=== PATIENT | male | born 1955 | race Caucasian/White ===

== ENCOUNTER 2017-02-26 15:28 | Emergency (ER) | payer OTHER ==
[~2017-02-26] VITALS: Ht 175.3 cm; Wt 103.6 kg
[~2017-02-26 15:28] MED LIST: ALBU8.5H2 IH; AMLO5TAB2 PO; ASPI-973 PO; CLON0.1T PO; DOXA8TAB73 PO; FURO40TA4 PO; GLUC-123 PO; HYDR-3090 PO; IBUP-1827 PO; INSU100I13 SUBQ; INSU100I18 SUBQ; INSU200I SQ; LEVO125T6 PO; LIP40 PO; LOSA100T29 PO; TRAM50TA2 PO; UBID50TA3 PO
[2017-02-26 15:35] VITALS: BP 122/73; PULSE 54; RESP 18; O2SAT 98
--- NOTE | 2017-02-26 16:36 | DRSVH ---
PROCEDURE: X-RAY CHEST ONE VIEW, PORTABLE ([id number]) INDICATIONS: SHORTNESS OF BREATH TECHNIQUE: One view of the chest was acquired. COMPARISON: [facility], , CHEST 2VW, 07/06/2014, 17:07. FINDINGS: Surgical changes and devices: Cervical plate and screw fixation Lungs and pleura: No pleural effusions or pneumothorax. Lungs are clear. Mediastinum: Mediastinal contours appear normal. Heart size is normal. Bones and chest wall: No suspicious bony lesions. Overlying soft tissues appear unremarkable. IMPRESSION: No acute disease Dictated by: Jaziel Mayers M.D. on 02/26/2017 at 15:33 Approved by: Jaziel Mayers M.D. on 02/26/2017 at 15:34
--- NOTE | 2017-02-26 18:13 | ED.REPORT ---
HPI-Dizziness / Weakness Date of Service Feb 26, 2017 ED Provider: Doc,Ed MD History of Present Illness: OCC Nursing Notes Stated Complaint: DIZZY, NAUSEA, BRADYCARDIA Chief Complaint: Dysrhythmia/Cardiac Nursing Notes Reviewed: Yes ([employer] not reconciled) Allergies: Coded Allergies: Sulfa (Sulfonamide Antibiotics) (Verified Allergy, Unknown, UNKNOWN, ) TAPE (Verified Allergy, Unknown, RASH/BLISTERS, 02/26/17) ceftriaxone (Verified Allergy, Unknown, UNKNOWN, 02/26/17) Penicillins (Verified Adverse Reaction, Intermediate, Diarrhea, 02/26/17) Scheduled Amlodipine (Amlodipine) 5 Mg Tablet 5 MG PO BID Aspirin (Aspirin) 81 Mg Tablet 81 MG PO DAILY Atorvastatin (Lipitor) 40 Mg Tablet 60 MG PO DAILY Cholecalciferol (Vitamin D3) (Vitamin D3) 1,000 Unit Tab.chew 2,000 UNIT PO DAILY Clonidine (Clonidine) 0.2 Mg Tablet 0.2 MG PO BID Doxazosin Mesylate (Doxazosin Mesylate) 8 Mg Tablet 8 MG PO BID Furosemide (Furosemide) 40 Mg Tablet 40 MG PO BID AM AND 1200 Gluc/Tc-MSM#2/C/D3/Denzel/Born (Lqohtnjwit-Cxtkmndacgs-WJW Tab) 1 Each Tablet 1 EACH PO DAILY Insulin Aspart (NovoLOG U-100 Pen) 100 Unit/Ml Insuln.pen 10 UNITS [id number] MORNING Insulin Aspart (NovoLOG U-100 Pen) 100 Unit/Ml Insuln.pen 15 UNIT [id number] LUNCH Insulin Aspart (NovoLOG U-100 Pen) 100 Unit/Ml Insuln.pen 18 UNIT [id number] DINNER Insulin Glargine (Lantus U100 Solostar Insulin Pen) 100 Unit/1 Ml Insuln.pen 25 UNIT SUBQ HS Levothyroxine (Synthroid) 112 Mcg Tablet 112 MCG PO DAILY Losartan Potassium (Losartan Potassium) 100 Mg Tablet 100 MG PO HS Metformin (Metformin) 500 Mg Tablet 500 MG PO BID Metoprolol Tartrate (Metoprolol Tartrate) 25 Mg Tablet 25 MG PO BID Potassium Chloride ER (Potassium Chloride ER) 20 Meq Tablet.er 20 MEQ PO DAILY TAKE WITH FOOD Ubidecarenone (Co Q-10) 100 Mg Capsule 100 MG PO DAILY Scheduled PRN Albuterol HFA (Proair HFA) 8.5 Gm Hfa.aer.ad 2 PUFFS IH Q4-6H PRN PRN shortness of breath Hydrocodone-Acetaminophen 5-300 mg (Hydrocodone-Acetaminophen 5-300 mg) 1 Each Tablet 1 TABLET PO Q4H PRN PRN For Pain Tramadol (Tramadol) 50 Mg Tablet 50 MG PO QID PRN PRN For Pain Miscellaneous Medications Glucagon,Human Recombinant (Glucagon Emergency Kit) 1 Mg Kit 1 MG IJ General Time Seen by MD: 18:09 Past Medical History Past Medical History Chronic lower back pain Thyroid cancer- in remission Asthma Migraines CHF Diabetes mellitus on Insulin Hyperlipidemia Hypertension Hypothyroid Reports: Hypertension Past Surgical History Right shoulder, right knee Fusion of neck and lower back Reports: Cholecystectomy Reports: Back/neck surgery Smoking History Never Smoker Social History Alcohol Use: Denies alcohol use Drug Use: Denies drug use Physical Exam Initial Vital Signs Vital Signs (First) Date Time Temp Pulse Resp B/P Pulse Ox O2 Delivery O2 Flow Rate FiO2 02/26/17 15:35 36.6 54 18 122/73 98 Room Air Initial VS: Reviewed, Vital signs normal (mild bradycardia) Interpretation & Diagnostics Lab Results Interpretation Result Diagram: 02/26/17191302/26/171913 Test 02/26/17 19:14 02/26/17 22:30 02/26/17 22:51 White Blood Count 6.4th/mm3 (3.8-10.1) Red Blood Count 4.31mil/mm3 (4.40-5.80) Hemoglobin 11.9g/dL (13.8-17.2) Hematocrit 37.2% (41.0-50.0) Mean Corpuscular Volume 86.3fL (81-100) Mean Corpuscular Hemoglobin 27.6pg (27.0-35.0) Mean Corpuscular Hemoglobin Concent 32.0% (32.0-37.0) Red Cell Distribution Width 12.9% (12.3-15.4) Platelet Count 256bil/L (150-400) Neutrophils (%) (Auto) 59.9% (40-74) Lymphocytes (%) (Auto) 29.4% (14-46) Monocytes (%) (Auto) 8.3% (4-12) Eosinophils (%) (Auto) 1.6% (0-5) Basophils (%) (Auto) 0.6% (0-3) D-Dimer < 0.50mg/L FEU (<0.50) Sodium Level 138mEq/L (134-144) Potassium Level 3.7mEq/L (3.5-5.2) Chloride Level 96mEq/L (97-108) Carbon Dioxide Level 26mmol/L (18-29) Blood Urea Nitrogen 20mg/dL (6-24) Creatinine 1.14mg/dL (0.76-1.27) Estimat Glomerular Filtration Rate 70mL/min (>59) Glucose Level 118mg/dL (60-99) Calcium Level 8.4mg/dL (8.5-10.1) Magnesium Level 2.2mg/dL (1.6-2.6) Total Bilirubin 0.6mg/dL (0.0-1.2) Aspartate Amino Transf (AST/SGOT) 41U/L (0-50) Alanine Aminotransferase (ALT/SGPT) 60U/L (0-44) Alkaline Phosphatase 101U/L (25-160) Troponin T < 0.010ug/L (0.0-0.011) Pro-B-Type Natriuretic Peptide 44.53pg/mL (0-210) Total Protein 7.0g/dL (6.4-8.4) Albumin 4.1g/dL (3.4-5.0) Hold Daniels Top Tube Received (Received) Hold Urine Received (Received) Urine Color Yellow (YELLOW) Urine Appearance Clear (CLEAR,HAZY) Urine pH 6.0 (5.0-8.0) Urine Specific [place] 1.005 (1.003-1.035) Urine Protein Negativemg/dL (NEG,TRACE) Urine Glucose (UA) 250mg/dL (NEGATIVE) Urine Ketones 15mg/dL (NEGATIVE) Urine Occult Blood Negative (NEGATIVE) Urine Nitrite Negative (NEGATIVE) Urine Bilirubin Negative (NEGATIVE) Urine Urobilinogen Normalmg/dL (NORMAL) Urine Leukocyte Esterase Negative (NEGATIVE) Urine RBC 0-2/hpf (0-2) Urine WBC 0-5/hpf (0-5) Urine Epithelial Cells Occasional/hpf (NONE-MOD) Urine Crystals None seen (NONE SEEN) Urine Bacteria None/hpf (NONE-FEW) Urine Hyaline Casts None/lpf (NONE) Urine Granular Casts None seen (NONE SEEN) Urine Waxy Casts None seen (NONE SEEN) Urine Red Blood Cell Casts None seen (NONE SEEN) Urine White Blood Cell Casts None seen (NONE SEEN) Urine Mucus None seen (None Seen) Urine Trichomonas None seen (NONE SEEN) Urine Yeast None (NONE SEEN) Urinalysis Comment None Urine Culture Reflexed Not indicated Re-Eval/Medical Decision Source of Hx: Old records Patient Discharge & Departure Referrals: Paulette Samuels MD (PCP) Willian Naqvi MD Feb 26, 2017 18:13 Willian Naqvi MD Feb 26, 2017 18:13
--- NOTE | 2017-02-26 18:15 | ED.REPORT ---
HPI-Dizziness / Weakness Date of Service Feb 26, 2017 ED Provider: Gab Doyle DO A 61 year old male with a history of IDDM, hypertension, CHF, asthma, migraines , hyperlipidemia and hypothyroidism is referred to the ED from Urgent Care complaining of dizziness. The pt has felt lightheaded and dizziness intermittently since yesterday afternoon. This was initially accompanied by headache and nausea, though the symptoms resolved when the pt went to bed yesterday. However the dizziness and lightheadedness returned this morning after eating breakfast and have persisted throughout the day. The dizziness is described as a "clockwise spinning" feeling that is worsened with standing and relieved by sitting down. The dizziness is not worsened by rolling over. The pt also noticed that his heart rate was low when the dizziness became most severe. He experienced similar symptoms two to three months ago with a syncopal episode and he had an extensive negative workup at [facility]. He was diagnosed with possible anemia at that time. The pt denies abnormal back pain. He takes Clonidine daily. Nursing Notes Stated Complaint: DIZZY, NAUSEA, BRADYCARDIA Chief Complaint: Dysrhythmia/Cardiac Nursing Notes Reviewed: Yes Allergies: Coded Allergies: Sulfa (Sulfonamide Antibiotics) (Verified Allergy, Unknown, UNKNOWN, ) TAPE (Verified Allergy, Unknown, RASH/BLISTERS, 02/27/17) ceftriaxone (Verified Allergy, Unknown, UNKNOWN, 02/27/17) Penicillins (Verified Adverse Reaction, Intermediate, Diarrhea, 02/27/17) Scheduled Amlodipine (Amlodipine) 5 Mg Tablet 5 MG PO BID Aspirin (Aspirin) 81 Mg Tablet 81 MG PO DAILY Atorvastatin (Lipitor) 40 Mg Tablet 60 MG PO DAILY Cholecalciferol (Vitamin D3) (Vitamin D3) 1,000 Unit Tab.chew 2,000 UNIT PO DAILY Clonidine (Clonidine) 0.2 Mg Tablet 0.2 MG PO BID Doxazosin Mesylate (Doxazosin Mesylate) 8 Mg Tablet 8 MG PO BID Furosemide (Furosemide) 40 Mg Tablet 40 MG PO BID AM AND 1200 Gluc/Tc-MSM#2/C/D3/Denzel/Born (Ovbvdgsqkg-Waqjsvxlryr-TRZ Tab) 1 Each Tablet 1 EACH PO DAILY Insulin Aspart (NovoLOG U-100 Pen) 100 Unit/Ml Insuln.pen 10 UNITS [id number] MORNING Insulin Aspart (NovoLOG U-100 Pen) 100 Unit/Ml Insuln.pen 15 UNIT [id number] LUNCH Insulin Aspart (NovoLOG U-100 Pen) 100 Unit/Ml Insuln.pen 18 UNIT [id number] DINNER Insulin Glargine (Lantus U100 Solostar Insulin Pen) 100 Unit/1 Ml Insuln.pen 25 UNIT SUBQ HS Levothyroxine (Synthroid) 112 Mcg Tablet 112 MCG PO DAILY Losartan Potassium (Losartan Potassium) 100 Mg Tablet 100 MG PO HS Metformin (Metformin) 500 Mg Tablet 500 MG PO BID Metoprolol Tartrate (Metoprolol Tartrate) 25 Mg Tablet 25 MG PO BID Potassium Chloride ER (Potassium Chloride ER) 20 Meq Tablet.er 20 MEQ PO DAILY TAKE WITH FOOD Ubidecarenone (Co Q-10) 100 Mg Capsule 100 MG PO DAILY Scheduled PRN Albuterol HFA (Proair HFA) 8.5 Gm Hfa.aer.ad 2 PUFFS IH Q4-6H PRN PRN shortness of breath Hydrocodone-Acetaminophen 5-300 mg (Hydrocodone-Acetaminophen 5-300 mg) 1 Each Tablet 1 TABLET PO Q4H PRN PRN For Pain Tramadol (Tramadol) 50 Mg Tablet 50 MG PO QID PRN PRN For Pain Miscellaneous Medications Glucagon,Human Recombinant (Glucagon Emergency Kit) 1 Mg Kit 1 MG IJ General Time Seen by MD: 18:12 Chief Complaint Dizzy Hx Obtained From: Patient Arrived By: Walk-in Onset Occurred: 1 day ago Symptom Duration: Intermittent Recent Healthcare: Recent doctor visit Similar Sx Previous: Yes Past Medical History Past Medical History IDDM Chronic lower back pain Thyroid cancer- in remission Asthma Migraines CHF Diabetes mellitus on Insulin Hyperlipidemia Hypertension Hypothyroid Past Surgical History Right shoulder, right knee Fusion of neck and lower back Reports: Cholecystectomy Reports: Back/neck surgery Smoking History Never Smoker Social History Alcohol Use: Denies alcohol use Drug Use: Denies drug use Ambulatory Status Independent Review of Systems Review of Systems Note: low heart rate Respiratory: Denies: Non-productive cough, Shortness of breath Cardiovascular: Denies: Chest pain GI: Reports: Nausea, Denies: Abdominal pain, Vomiting Skin: Denies Rash Neurologic: Reports: Dizziness, Headache, Lightheaded Complete sys rev & neg: except as marked. Musculoskeletal: Denies: Back pain (baseline, no abnormal pain) Physical Exam Initial Vital Signs Vital Signs (First) Date Time Temp Pulse Resp B/P Pulse Ox O2 Delivery O2 Flow Rate FiO2 02/26/17 15:35 36.6 54 18 122/73 98 Room Air Initial VS: Reviewed General/Constitutional: Awake, Alert Head / Eyes: Atraumatic, Normocephalic, PERRL, EOMI Respiratory / Chest: Atraumatic, Breath sounds NL, Breath sounds = bilat, No respiratory distress Cardiovascular: Regular rhythm, Heart sounds NL, No murmurs Heart Rate / Rhythm: Positive: Bradycardia Neurologic: Oriented X3, Speech NL, No motor deficits, No sensory deficits ENT: Atraumatic, Airway patent, Mucous membranes moist Neck: Atraumatic, Supple, Full range of motion Abdomen: Atraumatic, Soft, Non-tender Back: Atraumatic, Full range of motion Lower Extremity / Pelvis / MS: Atraumatic, Full range of motion Skin: Atraumatic, Color NL, No rash, Warm, Dry Psychiatric: Affect NL, Mood NL Upper Extremity / MS: Atraumatic, Full range of motion Interpretation & Diagnostics Lab Results Interpretation Result Diagram: 02/26/17191302/26/171913 Test 02/26/17 19:14 02/26/17 22:30 02/26/17 22:51 White Blood Count 6.4th/mm3 (3.8-10.1) Red Blood Count 4.31mil/mm3 (4.40-5.80) Hemoglobin 11.9g/dL (13.8-17.2) Hematocrit 37.2% (41.0-50.0) Mean Corpuscular Volume 86.3fL (81-100) Mean Corpuscular Hemoglobin 27.6pg (27.0-35.0) Mean Corpuscular Hemoglobin Concent 32.0% (32.0-37.0) Red Cell Distribution Width 12.9% (12.3-15.4) Platelet Count 256bil/L (150-400) Neutrophils (%) (Auto) 59.9% (40-74) Lymphocytes (%) (Auto) 29.4% (14-46) Monocytes (%) (Auto) 8.3% (4-12) Eosinophils (%) (Auto) 1.6% (0-5) Basophils (%) (Auto) 0.6% (0-3) D-Dimer < 0.50mg/L FEU (<0.50) Sodium Level 138mEq/L (134-144) Potassium Level 3.7mEq/L (3.5-5.2) Chloride Level 96mEq/L (97-108) Carbon Dioxide Level 26mmol/L (18-29) Blood Urea Nitrogen 20mg/dL (6-24) Creatinine 1.14mg/dL (0.76-1.27) Estimat Glomerular Filtration Rate 70mL/min (>59) Glucose Level 118mg/dL (60-99) Calcium Level 8.4mg/dL (8.5-10.1) Magnesium Level 2.2mg/dL (1.6-2.6) Total Bilirubin 0.6mg/dL (0.0-1.2) Aspartate Amino Transf (AST/SGOT) 41U/L (0-50) Alanine Aminotransferase (ALT/SGPT) 60U/L (0-44) Alkaline Phosphatase 101U/L (25-160) Troponin T < 0.010ug/L (0.0-0.011) Pro-B-Type Natriuretic Peptide 44.53pg/mL (0-210) Total Protein 7.0g/dL (6.4-8.4) Albumin 4.1g/dL (3.4-5.0) Hold Daniels Top Tube Received (Received) Hold Urine Received (Received) Urine Color Yellow (YELLOW) Urine Appearance Clear (CLEAR,HAZY) Urine pH 6.0 (5.0-8.0) Urine Specific [place] 1.005 (1.003-1.035) Urine Protein Negativemg/dL (NEG,TRACE) Urine Glucose (UA) 250mg/dL (NEGATIVE) Urine Ketones 15mg/dL (NEGATIVE) Urine Occult Blood Negative (NEGATIVE) Urine Nitrite Negative (NEGATIVE) Urine Bilirubin Negative (NEGATIVE) Urine Urobilinogen Normalmg/dL (NORMAL) Urine Leukocyte Esterase Negative (NEGATIVE) Urine RBC 0-2/hpf (0-2) Urine WBC 0-5/hpf (0-5) Urine Epithelial Cells Occasional/hpf (NONE-MOD) Urine Crystals None seen (NONE SEEN) Urine Bacteria None/hpf (NONE-FEW) Urine Hyaline Casts None/lpf (NONE) Urine Granular Casts None seen (NONE SEEN) Urine Waxy Casts None seen (NONE SEEN) Urine Red Blood Cell Casts None seen (NONE SEEN) Urine White Blood Cell Casts None seen (NONE SEEN) Urine Mucus None seen (None Seen) Urine Trichomonas None seen (NONE SEEN) Urine Yeast None (NONE SEEN) Urinalysis Comment None Urine Culture Reflexed Not indicated ECG Interpretation ECG Interpretation: normal sinus rhythm with a rate of 50 LBBB inverted T waves in lead 3 when compared with 10/24/2016, no significant change other than slightly lower heart rate Time: 19:02 Interpreted by: ED physician X-Ray Chest Interpretation Chest Xray Interpretation: IMPRESSION: No acute disease Dictated by: Jaziel Mayers M.D. on 02/26/2017 at 15:33 Approved by: Jaziel Mayers M.D. on 02/26/2017 at 15:34 Interpretation / Wet Read by: Interpret - Radiologist CT Head Interpretation IMPRESSION: 1. No acute intracranial process. Dictated by: Judith Diaz M.D. on 02/26/2017 at 19:30 Approved by: Judith Diaz M.D. on 02/26/2017 at 19:31 Interpretation / Wet Read by: Interpret - Radiologist Re-Eval/Medical Decision Med Decision/Clinical Course 61-year-old male presenting with a second episode of dizziness in several months. He describes it more as a lightheadedness/presyncope, although did have some component of room spinning. His symptoms did not improve on meclizine. He was orthostatic on arrival and after 2 L of fluid he remained orthostatic, specifically his heart rate remained at the same rate, and his blood pressure dropped approximately 20 points systolic from 160s to 140s. He noted symptoms when his heart rate would briefly drop into the mid/upper 40s, which happened once or twice during his stay here. Predominantly his heart rate was in the 50s and sometimes even up into the 70s. He has a left bundle branch block which is not new when compared with EKG in October. No elevated cardiac enzymes. I discussed this case with Dr. Yoon who suspects he has autonomic insufficiency related to his diabetes, and notes he may benefit from Midodrine. She recommends an outpatient athletic monitor as well as a stress test to evaluate for a chronotropic issue. I discussed these recommendations with the patient and he understands and agrees with the plan for follow-up. His symptoms have improved and he feels comfortable going home at this time. Source of Hx: Old records Re-Evaluation/Progress #1: Time of Eval: 18:47 Patient Status: Condition improved Re-Evaluation/Progress Note: Pt rechecked, who is resting. Further physical examination is performed. Re-Evaluation/Progress #2: Time of Eval: 21:31 Patient Status: Condition improved Re-Evaluation/Progress Note: Pt rechecked, whose dizziness has subsided somewhat. Plan for further evaluation is discussed. Re-Evaluation/Progress #3: Time of Eval: 22:33 Patient Status: Condition improved Re-Evaluation/Progress Note: Pt rechecked, who is comfortable. The diagnosis and plan for discharge are discussed. The pt understands and agrees with the plan. All questions are addressed at this time. Consultation : Referral / Consult Name: Claudia Yoon MD Consulted With: Cardiology Call Returned at: 22:22 Type Rolling Machine Operator: Agrees with eval, Agrees with plan Note: Consulted with Dr. Yoon, cardiology, regarding pt's case. Dr. Yoon agrees with the plan and recommends heart monitor, stress test and Midodrine. Counseled Regarding: Diagnosis, Lab results, Need for follow-up, When/why to return to ED Patient Discharge & Departure Impression: Primary Impression: Orthostasis Additional Impressions: Dizziness Bradycardia Disposition: Home Discharge Condition All VS Reviewed: Yes Condition: Stable Patient Instructions: Hypotension (ED) Additional Instructions: Thank you for entrusting us with your care. Your evaluation was reassuring. There does not appear to be an dangerous cause of your symptoms. Call your primary care physician to arrange a follow up appointment in the next several days. Discuss the possibility of a stress test and heart monitor during this follow up appointment, in addition to consider starting Midodrine. Return to the emergency department if you develop any new or worsening symptoms. Referrals: Paulette Samuels MD (PCP) Scribe Attestation Portions of this note were transcribed by Nicky Andrade. I, Dr. Doyle personally performed the history, physical exam and medical decision-making; I reviewed and confirmed the accuracy of the information in the transcribed note. Paulette Samules MD, Gary R DO Feb 26, 2017 18:15 NICKY ANDRADE Feb 26, 2017 18:36
[2017-02-26] MEDS ORDERED: 0.9% Sodium Chloride 1,000 ML IV ONE ×2 (18:37→20:17)
[2017-02-26] MEDS ORDERED: METO25TA6 PO (18:39)
[2017-02-26] MEDS ORDERED: INSU100I SUBCUTA079 ×3 (18:39)
[2017-02-26] MEDS ORDERED: LEVO112T3 PO (18:39)
[2017-02-26] MEDS ORDERED: GLUC1KIT IJ (18:39)
[2017-02-26] MEDS ORDERED: UBID100C25 PO (18:39)
[2017-02-26] MEDS ORDERED: POTA-62 PO (18:39)
[2017-02-26] MEDS ORDERED: METF500T4 PO (18:39)
[2017-02-26] MEDS ORDERED: CHOL10008 PO (18:39)
[2017-02-26] MEDS ORDERED: CLON0.2T PO (18:39)
[2017-02-26 19:21] LABS: BASOPHILS % (AUTO) 0.6 % (0-3); EOSINOPHILS % (AUTO) 1.6 % (0-5); MONOCYTES % (AUTO) 8.3 % (4-12); Mean Corpuscular Hemoglobin 27.6 pg (27.0-35.0); Mean Corpuscular Volume 86.3 fL (81-100); NEUTROPHILS % (AUTO) 59.9 % (40-74); Platelet Count 256 bil/L (150-400)
--- NOTE | 2017-02-26 19:33 | DRSVH ---
PROCEDURE: CT BRAIN WITHOUT CONTRAST ([id number]) INDICATIONS: dizziness, near syncope TECHNIQUE: Noncontrast 4.5 mm thick angled axial sections acquired from the foramen magnum to the vertex, with c oronal reformats. COMPARISON: [facility], CT, HEAD WITHOUT CONTRAST, 02/18/2013, 0:02. FINDINGS: Image quality: Excellent. CSF spaces: Basal cisterns are patent. No extra-axial fluid collections. Ventricles are normal in size and shape. Brain: No midline shift. No intracranial masses or hemorrhage. Schreiber-white matter interface is norm al. Skull and face: Calvarium and visualized facial bones are intact, without suspicious lesions. Sinuses: Visualized sinuses and mastoids are clear. IMPRESSION: 1. No acute intracranial process. Dictated by: Judith Diaz M.D. on 02/26/2017 at 19:30 Approved by: Judith Diaz M.D. on 02/26/2017 at 19:31
[2017-02-26 19:46] LABS: TROPONIN T < 0.010 ug/L (0.0-0.011)
[2017-02-26 19:55] LABS: Magnesium 2.2 mg/dL (1.6-2.6)
[2017-02-26 21:23] VITALS: BP 154/66; PULSE 65; RESP 18; O2SAT 97
[2017-02-26 23:02] LABS: APPEARANCE,URINE CLEAR (CLEAR,HAZY); COLOR,URINE YELLOW (YELLOW); OCCULT BLOOD,URINE NEGATIVE (NEGATIVE); UROBILINOGEN,URINE NORMAL (NORMAL)
[2017-02-26 23:16] VITALS: BP 149/73; PULSE 63; RESP 18; O2SAT 96
== END 2017-02-26 23:17 | disposition home or self-care (01) ==
LOC: SED 15:28
DX: I95.1 Orthostatic hypotension (principal); R00.1 Bradycardia, unspecified; R42 Dizziness and giddiness; E11.9 Type 2 diabetes mellitus without complications; I11.0 Hypertensive heart disease with heart failure; I50.9 Heart failure, unspecified; E78.5 Hyperlipidemia, unspecified; E03.9 Hypothyroidism, unspecified; Z85.850 Personal history of malignant neoplasm of thyroid; Z79.82 Long term (current) use of aspirin; Z79.84 Long term (current) use of oral hypoglycemic drugs; Z79.4 Long term (current) use of insulin; Z88.0 Allergy status to penicillin; Z88.1 Allergy status to other antibiotic agents; Z88.2 Allergy status to sulfonamides
CPT/HCPCS: 36415; 70450; 71010; 80053; 81000; 83735; 83880; 84484; 85025; 85378; 93005; 96360; 96361; 99285; J7030

== ENCOUNTER 2017-02-27 16:01 | Emergency (ER) | payer OTHER ==
[~2017-02-27] VITALS: Ht 175.3 cm; Wt 103.6 kg
[~2017-02-27 16:01] MED LIST changes: +CHOL10008 PO; -CLON0.1T PO; +CLON0.2T PO; +GLUC1KIT IJ; -IBUP-1827 PO; +INSU100I SUBCUTA079; -INSU100I18 SUBQ; -INSU200I SQ; +LEVO112T3 PO; -LEVO125T6 PO; +METF500T4 PO; +METO25TA6 PO; +POTA-62 PO; +UBID100C25 PO; -UBID50TA3 PO
[2017-02-27 16:10] VITALS: BP 98/66; PULSE 67; RESP 16; O2SAT 98
--- NOTE | 2017-02-27 18:05 | ED.REPORT ---
HPI-Dizziness / Weakness Date of Service Feb 27, 2017 ED Provider: Willian Naqvi MD The patient is a 61 year old male with a hx of syncope, HTN, thyroid cancer, hyperlipidemia, and chronic back pain presenting to the ED complaining of fatigue and near syncopal episodes onset today. The patient claims that he was making breakfast and he began to feel fatigued, so he had to take a break and sit down before he could finish making breakfast. He said that the episode last about 1-2 minutes. He also said that he felt very fatigued and as if he was about to pass out while urinating today, so he had to quickly go and sit down. He says that he never felt these symptoms prior to a month ago and has felt similar symptoms today, yesterday, and the day before. He claims that he feel dizziness without spins, diaphoresis, blurred vision, and headache. He claims that he felt chest discomfort and nausea after yesterday's episode, but not today. He also denies palpitations, fever, and vomiting. The pt was seen yesterday in the ED for similar symptoms and had a negative workup. Nursing Notes Stated Complaint: DIZZY Chief Complaint: Neuro Symptoms/ Deficits Nursing Notes Reviewed: Yes Allergies: Coded Allergies: Sulfa (Sulfonamide Antibiotics) (Verified Allergy, Unknown, UNKNOWN, ) TAPE (Verified Allergy, Unknown, RASH/BLISTERS, 02/27/17) ceftriaxone (Verified Allergy, Unknown, UNKNOWN, 02/27/17) Penicillins (Verified Adverse Reaction, Intermediate, Diarrhea, 02/27/17) Scheduled Amlodipine (Amlodipine) 5 Mg Tablet 5 MG PO BID Aspirin (Aspirin) 81 Mg Tablet 81 MG PO DAILY Atorvastatin (Lipitor) 40 Mg Tablet 60 MG PO DAILY Cholecalciferol (Vitamin D3) (Vitamin D3) 1,000 Unit Tab.chew 2,000 UNIT PO DAILY Clonidine (Clonidine) 0.2 Mg Tablet 0.2 MG PO BID Doxazosin Mesylate (Doxazosin Mesylate) 8 Mg Tablet 8 MG PO BID Furosemide (Furosemide) 40 Mg Tablet 40 MG PO BID AM AND 1200 Gluc/Tc-MSM#2/C/D3/Denzel/Born (Taynrxlvwo-Zgjyuxykrer-NFR Tab) 1 Each Tablet 1 EACH PO DAILY Insulin Aspart (NovoLOG U-100 Pen) 100 Unit/Ml Insuln.pen 10 UNITS [id number] MORNING Insulin Aspart (NovoLOG U-100 Pen) 100 Unit/Ml Insuln.pen 15 UNIT [id number] LUNCH Insulin Aspart (NovoLOG U-100 Pen) 100 Unit/Ml Insuln.pen 18 UNIT [id number] DINNER Insulin Glargine (Lantus U100 Solostar Insulin Pen) 100 Unit/1 Ml Insuln.pen 25 UNIT SUBQ HS Levothyroxine (Synthroid) 112 Mcg Tablet 112 MCG PO DAILY Losartan Potassium (Losartan Potassium) 100 Mg Tablet 100 MG PO HS Metformin (Metformin) 500 Mg Tablet 500 MG PO BID Metoprolol Tartrate (Metoprolol Tartrate) 25 Mg Tablet 25 MG PO BID Potassium Chloride ER (Potassium Chloride ER) 20 Meq Tablet.er 20 MEQ PO DAILY TAKE WITH FOOD Ubidecarenone (Co Q-10) 100 Mg Capsule 100 MG PO DAILY Scheduled PRN Albuterol HFA (Proair HFA) 8.5 Gm Hfa.aer.ad 2 PUFFS IH Q4-6H PRN PRN shortness of breath Hydrocodone-Acetaminophen 5-300 mg (Hydrocodone-Acetaminophen 5-300 mg) 1 Each Tablet 1 TABLET PO Q4H PRN PRN For Pain Tramadol (Tramadol) 50 Mg Tablet 50 MG PO QID PRN PRN For Pain Miscellaneous Medications Glucagon,Human Recombinant (Glucagon Emergency Kit) 1 Mg Kit 1 MG IJ General Time Seen by MD: 18:00 Chief Complaint Other (fatigue) Hx Obtained From: Patient Arrived By: Walk-in Onset Occurred: Just prior to arrival Context of Onset: With standing Symptom Duration: Since onset Associated with: Reports: Headache, Denies: Fever, Nausea, Palpitations, Vomiting Pertinent Negative: Pt denies other symptoms Recent Healthcare: Recent doctor visit, Recent hospitalization Similar Sx Previous: Yes Past Medical History Past Medical History Notes: Seen yesterday in ED (10 hour ED stay) for dizziness, +orthostasis Past Medical History IDDM Chronic lower back pain Thyroid cancer- in remission Asthma Migraines CHF Diabetes mellitus on Insulin Hyperlipidemia Hypertension Left Bundle Branch Block Hypothyroid Reports: Hypertension Past Surgical History Right shoulder, right knee Fusion of neck and lower back Reports: Cholecystectomy Reports: Back/neck surgery Smoking History Never Smoker Social History Alcohol Use: Denies alcohol use Drug Use: Denies drug use Ambulatory Status Independent Review of Systems Constitutional: Reports: Fatigue, Denies: Fever Eyes: Reports: Blurred bilateral Cardiovascular: Denies: Palpitations GI: Denies: Nausea, Vomiting Skin: Reports Diaphoresis Neurologic: Reports: Headache Complete sys rev & neg: except as marked. Physical Exam Initial Vital Signs Vital Signs (First) Date Time Temp Pulse Resp B/P Pulse Ox O2 Delivery O2 Flow Rate FiO2 02/27/17 16:10 36.9 67 16 98/66 98 Room Air Initial VS: Reviewed, Vital signs abnormal (BP low) ENT: Mucous membranes moist, Conjunctiva normal, No scleral icterus Neck: Supple, Non-tender, Full range of motion Abdomen / GI: Soft, Non-tender, No guarding, No rebound, No distention Extremities: Vascular intact, Neuro intact, No swelling, No tenderness Skin: Warm, Dry, No cyanosis Psychiatric: Mood/affect normal, Behavior normal, Normal thought content General/Constitutional: Awake, Alert Head / Eyes: Normocephalic, PERRL, No nystagmus, Conjunctiva NL Respiratory / Chest: Breath sounds NL, Breath sounds = bilat, No respiratory distress, No rales, No rhonchi, No wheezing Cardiovascular: No murmurs Heart Rate / Rhythm: Positive: Bradycardia (resting bradycardia) Neurologic: Oriented X3, Speech NL, No motor deficits, No sensory deficits, CN II - XII intact, Cerebellar NL Interpretation & Diagnostics MR Brain Without contrast CONCLUSION: No acute intracranial abnormality. This report was transmitted to the emergency room at 02/27/2017 - 11:59:11 PM PDT. Lab Results Interpretation Result Diagram: 02/27/17 1825 02/27/17 1825 Test 02/27/17 18:25 02/27/17 19:35 White Blood Count 6.4th/mm3 (3.8-10.1) Red Blood Count 4.23mil/mm3 (4.40-5.80) Hemoglobin 12.0g/dL (13.8-17.2) Hematocrit 36.7% (41.0-50.0) Mean Corpuscular Volume 86.8fL (81-100) Mean Corpuscular Hemoglobin 28.4pg (27.0-35.0) Mean Corpuscular Hemoglobin Concent 32.7% (32.0-37.0) Red Cell Distribution Width 13.1% (12.3-15.4) Platelet Count 264bil/L (150-400) Neutrophils (%) (Auto) 62.8% (40-74) Lymphocytes (%) (Auto) 25.4% (14-46) Monocytes (%) (Auto) 9.2% (4-12) Eosinophils (%) (Auto) 1.6% (0-5) Basophils (%) (Auto) 0.8% (0-3) Sodium Level 142mEq/L (134-144) Potassium Level 3.9mEq/L (3.5-5.2) Chloride Level 100mEq/L (97-108) Carbon Dioxide Level 26mmol/L (18-29) Blood Urea Nitrogen 21mg/dL (6-24) Creatinine 1.40mg/dL (0.76-1.27) Estimat Glomerular Filtration Rate 55mL/min (>59) Glucose Level 72mg/dL (60-99) Calcium Level 8.5mg/dL (8.5-10.1) Total Bilirubin 0.4mg/dL (0.0-1.2) Aspartate Amino Transf (AST/SGOT) 39U/L (0-50) Alanine Aminotransferase (ALT/SGPT) 63U/L (0-44) Alkaline Phosphatase 100U/L (25-160) Troponin T < 0.010ug/L (0.0-0.011) Total Protein 6.9g/dL (6.4-8.4) Albumin 4.0g/dL (3.4-5.0) Urine Color Yellow (YELLOW) Urine Appearance Clear (CLEAR,HAZY) Urine pH 5.5 (5.0-8.0) Urine Specific [place] 1.015 (1.003-1.035) Urine Protein Negativemg/dL (NEG,TRACE) Urine Glucose (UA) Negativemg/dL (NEGATIVE) Urine Ketones Negativemg/dL (NEGATIVE) Urine Occult Blood Negative (NEGATIVE) Urine Nitrite Negative (NEGATIVE) Urine Bilirubin Negative (NEGATIVE) Urine Urobilinogen Normalmg/dL (NORMAL) Urine Leukocyte Esterase Negative (NEGATIVE) Urine RBC 0-2/hpf (0-2) Urine WBC 0-5/hpf (0-5) Urine Epithelial Cells Few/hpf (NONE-MOD) Urine Crystals Oxalic acid crystals (NONE Urine Bacteria Few/hpf (NONE-FEW) Urine Hyaline Casts 5/20/lpf (NONE) Urine Granular Casts None seen (NONE SEEN) Urine Waxy Casts None seen (NONE SEEN) Urine Red Blood Cell Casts None seen (NONE SEEN) Urine White Blood Cell Casts None seen (NONE SEEN) Urine Mucus Present (None Seen) Urine Trichomonas None seen (NONE SEEN) Urine Yeast None (NONE SEEN) Urinalysis Comment None Urine Culture Reflexed Not indicated Lab Results Interpretation: CBC normal CMP mild bump in renal insufficiency, significance unclear Troponin negative Re-Eval/Medical Decision Med Decision/Clinical Course This is a 61-year-old male who presents complaining of ongoing episodes of near syncope that are somewhat positional. Seen yesterday in an extensive evaluation and at that time was noted to be orthostatic. No other pathology was identified. Today there is a clinical orthostatic and that his symptoms are usually positional, is not had chest pain shortness of breath. I do not get a clear vertiginous component of a history provides me, although citrates vertiginous component listed in the history obtained yesterday. He denies fever , new medications, blood loss, or additional symptoms. In the department he appears well. He is not orthostatic on several attempts and measurements in the department today. Not really even reproduce his symptoms, on several road test. Concerned, so patient was observed, rehydrated , repeat labs were obtained. Ultimately even an MRI of the brain was obtained which was negative. He had no dysrhythmic events, had no episodes of symptoms on another multiple hour ED stay, and is a bit frustrated that a definitive cause has not been identified. I discussed options and from observation admission is discharge home, the patient having spent most of the past 2 days in the department, wishes to go home and I think this is reasonable. Follow the PCPs still recommended his initial plan, routine and return precautions are reviewed. Patient is discharged in stable condition. Source of Hx: Old records Re-Evaluation/Progress #1: Time of Eval: 00:49 Patient Status: Condition improved Re-Evaluation/Progress Note: Patient rechecked. Discussed lab and MRI results. Re-Evaluation/Progress #2: Time of Eval: 02:07 Patient Status: Condition improved Re-Evaluation/Progress Note: Pateint rechecked. Discussed plan to discharge. Patient understands and agrees with plan. All questions addressed at this time. Differential Diagnosis: Negative: Acute coronary syndrome, Anemia, Benign parox vertigo, Carbon monoxide poisoning, Cerebrovascular accident, Dysrhythmia , Electrolyte disorder, Hyperventilation syndrome, Hypoglycemia, Hypothyroidism , Intracranial bleed, Meniere's disease, Periodic paralysis, Sepsis, Subarachnoid hemorrhage, Tick paralysis Counseled Regarding: Diagnosis, Lab results, Need for follow-up, When/why to return to ED Patient Discharge & Departure Impression: Primary Impression: Near syncope Disposition: Home Discharge Condition All VS Reviewed: Yes Condition: Improved Additional Instructions: 1. A dangerous cause of your symptoms ("near syncope") was not identified. 2. Although you were orthostatic yesterday with low blood pressures when he stood up, today we were unable to reproduce this. 3. Your heart tests, and blood tests were all normal in the ED. Today given the severity and recurrent severe symptoms and MRI of the brain was obtained and was negative for stroke or other dangerous cause. 4. We do want you to follow-up with Dr. Samuels. 5. Please take it easy. Make sure you are eating and drinking normally. 6. Return again if new or worsening symptoms Referrals: Paulette Samuels MD (PCP) Scribe Attestation Portions of this note were transcribed by Mady Huff and Deangelo Milton. I, Dr. Naqvi personally performed the history, physical exam and medical decision -making; I reviewed and confirmed the accuracy of the information in the transcribed note. Signed by: Antonio Ponce, 02/28/2017 Paulette Samuels MD, Matthew F MD Feb 27, 2017 18:05 Feb 27, 2017 18:44 MADY HUFF Feb 27, 2017 19:52
[2017-02-27 18:12] VITALS: BP_SYST 103; BP_SYST 127; BP_DIAS 58; BP_DIAS 59; PULSE 54; PULSE 63; RESP 13; RESP 19; O2SAT 100; O2SAT 95
[2017-02-27 18:13] VITALS: BP_SYST 108; BP_SYST 116; BP_DIAS 54; BP_DIAS 62; PULSE 67; PULSE 70; RESP 14; O2SAT 99
[2017-02-27 18:39] LABS: BASOPHILS % (AUTO) 0.8 % (0-3); EOSINOPHILS % (AUTO) 1.6 % (0-5); MONOCYTES % (AUTO) 9.2 % (4-12); Mean Corpuscular Hemoglobin 28.4 pg (27.0-35.0); Mean Corpuscular Volume 86.8 fL (81-100); NEUTROPHILS % (AUTO) 62.8 % (40-74); Platelet Count 264 bil/L (150-400)
[2017-02-27 19:06] LABS: TROPONIN T < 0.010 ug/L (0.0-0.011)
[2017-02-27 19:21] VITALS: BP 137/72; PULSE 52; RESP 14; O2SAT 96
[2017-02-27 19:50] LABS: APPEARANCE,URINE CLEAR (CLEAR,HAZY); COLOR,URINE YELLOW (YELLOW); OCCULT BLOOD,URINE NEGATIVE (NEGATIVE); PH,URINE 5.5 (5.0-8.0); UROBILINOGEN,URINE NORMAL (NORMAL)
[2017-02-27] MEDS ORDERED: 0.9% Sodium Chloride 1,000 ML IV ONE (20:50)
[2017-02-27 21:35] VITALS: BP 142/69; PULSE 55; RESP 15; O2SAT 96
[2017-02-27 23:45] VITALS: BP 143/75; PULSE 58; RESP 15; O2SAT 99
[2017-02-28 01:59] VITALS: BP 139/79; PULSE 59; RESP 17; O2SAT 96
[2017-02-28 02:00] VITALS: BP 150/82; PULSE 70; RESP 18; O2SAT 98
[2017-02-28 03:02] VITALS: BP 149/86; PULSE 62; RESP 18; O2SAT 98
--- NOTE | 2017-02-28 08:13 | DRSVH ---
PROCEDURE: MRI BRAIN WITHOUT CONTRAST ([id number]) INDICATIONS: vertigo TECHNIQUE: Non-contrast axial T1 spin echo, axial T2 fast spin echo, sagittal and axial FLAIR, coronal T2 fast s pin echo, axial gradient echo, axial diffusion and ADC through the brain. COMPARISON: None. FINDINGS: Image quality: Excellent. CSF spaces: Ventricles appear symmetric in size and shape. Basal cisterns are patent. No extra-axi al fluid collections. Brain: No intracranial bleeds or mass effects. There is cerebral volume loss for age. There are pe riventricular and deep white matter chronic small vessel ischemic changes. Brainstem appears normal. Diffusion-weighted images show no acute ischemic insults. No chronic ischemic insults. Normal int ravascular flow voids are present. Skull and face: Calvarial bone marrow is normal in signal. Orbits are normal. Sinuses: Mild mucosal thickening noted in the left maxillary sinus. The mastoids are clear. IMPRESSION: 1. No acute intracranial disease process. 2. Mild, diffuse volume loss. 3. Mild periventricular and subcortical white matter chronic microvascular ischemic changes. Dictated by: Karmen Connors MD, PhD on 02/28/2017 at 8:09 Approved by: Karmen Connors MD, PhD on 02/28/2017 at 8:11
== END 2017-02-28 03:03 | disposition home or self-care (01) ==
LOC: SED 16:01
DX: R55 Syncope and collapse (principal); R42 Dizziness and giddiness; R61 Generalized hyperhidrosis; H53.8 Other visual disturbances; R51 Headache; I11.0 Hypertensive heart disease with heart failure; E11.59 Type 2 diabetes mellitus with other circulatory complications; I50.9 Heart failure, unspecified; J45.909 Unspecified asthma, uncomplicated; G43.909 Migraine, unspecified, not intractable, without status migrainosus; E03.9 Hypothyroidism, unspecified; E78.5 Hyperlipidemia, unspecified; Z90.49 Acquired absence of other specified parts of digestive tract; Z98.890 Other specified postprocedural states; Z79.82 Long term (current) use of aspirin; Z79.4 Long term (current) use of insulin; Z79.84 Long term (current) use of oral hypoglycemic drugs; Z88.0 Allergy status to penicillin; Z88.1 Allergy status to other antibiotic agents; Z88.2 Allergy status to sulfonamides; Z91.048 Other nonmedicinal substance allergy status
CPT/HCPCS: 36415; 70551; 80053; 81000; 82533; 84484; 85025; 96360; 99285; J7030